=== PATIENT | male | born 1995 | race African-American/Black ===

== ENCOUNTER 2016-12-26 17:42 | Emergency (ER) | payer BC ==
[~2016-12-26] VITALS: Ht 190.5 cm; Wt 100.0 kg
[2016-12-26] MEDS ORDERED: IBUPROFEN 600MG TABLET PO ONE (19:30)
[2016-12-26] MEDS ORDERED: AMPICILLIN SOD/SULBACTAM NA 3 G in SODIUM CHLORIDE 0.9% 100 ML IV SCH (19:45)
[2016-12-26] MEDS ORDERED: SODIUM CHLORIDE 0.9% 1000ML BAG (SEPSIS BOLUS) IV ONE (19:45)
[2016-12-26] MEDS ORDERED: MORPHINE SULFATE 10 MG/ML CPJ IV ONE (20:15)
[2016-12-26] MEDS ORDERED: ONDANSETRON HCL 4MG/2ML VIAL IV ONE (20:15)
[2016-12-26 20:27] LABS: BASOPHILS % 0.6 % (0.0-2.0); EOSINOPHILS % 1.6 % (0.0-5.0); HEMATOCRIT. 41.8 % (42.0-52.0); HEMOGLOBIN. 14.2 g/dL (14.0-18.0); LYMPHOCYTES % 38.5 % (20.0-50.0); MEAN CORPUSCULAR HEMOGLOBIN 31.1 pg (28.0-32.0); MEAN CORPUSCULAR HGB CONC 33.9 g/dL (31.0-37.0); MEAN CORPUSCULAR VOLUME 91.6 fL (80.0-94.0); MEAN PLATELET VOLUME 8.6 fl (7.4-10.4); MONOCYTES % 8.1 % (2.0-8.0); NEUTROPHILS % 51.2 % (40.0-76.0); PLATELET 242 x1000/uL (130-400); RED BLOOD CELL COUNT 4.57 mill/uL (4.7-6.1); WHITE BLOOD COUNT 7.4 x1000/uL (4.5-11.0)
[2016-12-26 20:31] LABS: CHLORIDE 105 mEq/L (98-107); INDEX HEMOLYSI 1 (1-3); INDEX ICTERIC 1 (1-4); INDEX LIPEMIC 1 (1-3)
[2016-12-26 20:34] LABS: CLARITY URINE CLEAR (CLEAR); COLOR URINE YELLOW (YELLOW); GLUCOSE URINE NEGATIVE (NEGATIVE); KETONES URINE TRACE (NEGATIVE); LEUKOCYTE ESTERASE URINE NEGATIVE (NEGATIVE); NITRITE URINE NEGATIVE (NEGATIVE); OCCULT BLOOD URINE NEGATIVE (NEGATIVE); PH URINE 5.5 (4.5-8.0); PROTEIN URINE NEGATIVE (NEGATIVE); SPECIFIC GRAVITY URINE 1.029 (1.005-1.030)
[2016-12-26 20:37] LABS: ANION GAP 14; CALCIUM 8.7 mg/dL (8.5-10.1); CARBON DIOXIDE 25 mEq/L (21-32); UREA NITROGEN BLOOD 20 mg/dL (7-21); eGFR > 60 mL/min (>60)
[2016-12-26] MEDS ORDERED: DEXT 5%/0.45% NACL KCL 20MEQ/L 1,000 ML IV ONE (21:57)
[2016-12-26] MEDS ORDERED: VANCOMYCIN 1 G PREMIX 200 ML IV SCH (22:00)
[2016-12-27 00:16] VITALS: BP 119/84
[2016-12-27] MEDS ORDERED: TETANUS, DIPHTHERIA, PERTUSSIS VAC/PF 0.5ML (>7YR OLD) IM ONE (01:00)
[2016-12-27] MEDS ORDERED: DIPHENHYDRAMINE 50MG/ML VIAL IV ONE (01:30)
== END 2016-12-27 02:27 | disposition home or self-care (01) ==
LOC: ER 17:44 → SUPCPDRO 01-04 16:11
DX: L03.113 Cellulitis of right upper limb (principal)
CPT/HCPCS: 36415; 71010; 73130; 80048; 81003; 83605; 85025; 85610; 87040; 87086; 90471; 90715; 93005; 96365; 96366; 96367; 96375; 99285; J0295; J1200; J2270; J2405; J3370; J7030; Z7610; J7050

== ENCOUNTER 2016-12-30 07:29 | Emergency (ER) | payer BC ==
[~2016-12-30] VITALS: Ht 190.5 cm; Wt 104.0 kg
[2016-12-30] MEDS ORDERED: HYDR-523 PO (07:44)
[2016-12-30] MEDS ORDERED: CLIN-79 PO (07:44)
[2016-12-30] MEDS ORDERED: IBUP-1510 PO (07:44)
[2016-12-30 08:08] VITALS: BP 143/93
== END 2016-12-30 09:11 | disposition home or self-care (01) ==
LOC: ER 07:30
DX: R19.7 Diarrhea, unspecified (principal); F17.200 Nicotine dependence, unspecified, uncomplicated; L03.113 Cellulitis of right upper limb; R11.2 Nausea with vomiting, unspecified; Y04.1XXA Assault by human bite, initial encounter; Y93.89 Activity, other specified; Y99.8 Other external cause status; Y92.89 Other specified places as the place of occurrence of the external cause; Z88.1 Allergy status to other antibiotic agents
CPT/HCPCS: 99283

== ENCOUNTER 2017-01-06 05:13 | Emergency (ER) | payer BC ==
[~2017-01-06] VITALS: Ht 190.5 cm; Wt 103.0 kg
[~2017-01-06 05:13] MED LIST: CLIN-79 PO; HYDR-523 PO; IBUP-1510 PO
[2017-01-06] MEDS ORDERED: KETOROLAC 60MG/2ML VIAL IM ONE (07:45)
[2017-01-06] MEDS ORDERED: PENICILLIN G BENZATHINE 1,200,000 UNITS/2ML SYR IM ONE (09:30)
[2017-01-06] MEDS ORDERED: LIDOCAINE HCL 1% 20ML VIAL (Pyxis) INJ MC ONE (09:30)
[2017-01-06] MEDS ORDERED: ACETAMINOPHEN 325MG TABLET PO ONE (11:45)
[2017-01-06 12:00] VITALS: BP 120/69
== END 2017-01-06 12:00 | disposition home or self-care (01) ==
LOC: ER 07:26
DX: J02.9 Acute pharyngitis, unspecified (principal); R00.0 Tachycardia, unspecified; F17.200 Nicotine dependence, unspecified, uncomplicated; Z88.1 Allergy status to other antibiotic agents
CPT/HCPCS: 96372; 99284; J0561; J1885; J3490; Z7610

== ENCOUNTER 2017-10-07 10:51 | Emergency (ER) | payer BC ==
[~2017-10-07] VITALS: Ht 190.5 cm; Wt 109.0 kg
[~2017-10-07 10:51] MED LIST changes: -CLIN-79 PO; +CLIN300C11 PO; -IBUP-1510 PO; +IBUP-2030 PO
[2017-10-07 10:56] VITALS: BP 151/110
== END 2017-10-07 14:33 | disposition home or self-care (01) ==
LOC: ER 11:01
DX: S61.257A Open bite of left little finger without damage to nail, initial encounter (principal); Z88.1 Allergy status to other antibiotic agents; W54.0XXA Bitten by dog, initial encounter; Y93.89 Activity, other specified; Y92.89 Other specified places as the place of occurrence of the external cause; Y99.8 Other external cause status
CPT/HCPCS: 99283